=== PATIENT | female | born 1970 | race Caucasian/White ===

== ENCOUNTER 2016-08-08 14:19 | Emergency (ER) | payer BC ==
[2016-08-08 15:04] VITALS: BP 148/70
[2016-08-08] MEDS ORDERED: diPHENhydraMINE PO* 50 MG PO ONE (15:28)
[2016-08-08] MEDS ORDERED: Famotidine TAB* 20 MG PO ONE (15:28)
[2016-08-08] MEDS ORDERED: predniSONE TAB* 20 MG PO ONE (15:29)
--- NOTE | 2016-08-08 15:44 | UC ---
Allergic Reaction HPI - HPI Summary HPI Summary: SINCE YESTERDAY HAS HAD ITCHING AND HIVES ALL OVER BODY. 25 YEARS AGO, DEVELOPED SIMILAR CONDITION, WAS DIAGNOSED WITH CHEMICAL SENSITIVITY. CONCERN THAT SHE WAS RECENTLY EXPOSED TO FRESH PAINT. - History of Current Complaint Chief Complaint: UCGeneralIllness Stated Complaint: ALLERGIC REACTION Time Seen by Provider: 08/08/16 15:16 Hx Obtained From: Patient Onset/Duration: Sudden Onset, Lasting Days, Still Present Severity Initially: Moderate Severity Currently: Moderate Character: Pruritus, Hives Alleviating Factor(s): Antihistamines Associated Signs And Symptoms: Positive: Rash. Negative: Abdominal Pain, Chest Pain, Cough Wheezing, Difficulty Breathing, Hoarseness, Lightheadedness, Syncope , Throat Tightening - Related Hx Possible Reaction To: Environmental Exposure - Allergies/Home Medications Allergies/Adverse Reactions: Allergies Allergy/AdvReac Type Severity Reaction Status Date / Time Azithromycin [From Zithromax] Allergy Rash Verified 08/08/16 14:56 Home Medications: Home Medications Flecainide TAB* [Tambocor TAB*] 75 mg DAILY 08/08/16 [History Confirmed 08/08/16 ] diPHENhydraMINE PO* [Benadryl PO 25 MG TAB*] 2 tab PRN 08/08/16 [History] PMH/Surg Hx/FS Hx/Imm Hx Previously Healthy: Yes Cardiovascular History Of: Reports: Cardiac Disorders - Surgical History Surgical History: Yes Surgery Procedure, Year, and Place: Ablation. D/C - Family History Known Family History: Positive: Other - NO LIVE DISEASE HISTORY Negative: Renal Disease - Social History Occupation: Employed Full-time Lives: With Family Alcohol Use: Occasionally Substance Use Type: None Smoking Status (MU): Current Every Day Smoker Type: Cigarettes Amount Used/How Often: 1/2 ppd Cessation Counseling: Patient Advised to Stop - Immunization History Most Recent Influenza Vaccination: None Most Recent Tetanus Shot: UTD Most Recent Pneumonia Vaccination: n/a Review of Systems Constitutional: Negative Skin: Rash Eyes: Negative ENT: Negative Respiratory: Negative Cardiovascular: Negative Gastrointestinal: Negative Genitourinary: Negative Motor: Negative Neurovascular: Negative Musculoskeletal: Negative Neurological: Negative Psychological: Negative All Other Systems Reviewed And Are Negative: Yes Physical Exam Triage Information Reviewed: Yes Appearance: Well-Appearing, No Pain Distress, Well-Nourished Vital Signs: Initial Vital Signs Temp 99 F 08/08/16 14:58 Pulse 81 08/08/16 14:58 Resp 18 08/08/16 14:58 BP 148/70 08/08/16 14:58 Pulse Ox 98 08/08/16 14:58 Eye Exam: Normal Eyes: Positive: Conjunctiva Clear, Other: - NO JAUNDICE ENT Exam: Normal ENT: Positive: Normal ENT inspection, Hearing grossly normal, Pharynx normal, TMs normal Dental Exam: Normal Neck exam: Normal Neck: Positive: Supple, Nontender, No Lymphadenopathy Respiratory Exam: Normal Respiratory: Positive: Chest non-tender, Lungs clear, Normal breath sounds, No respiratory distress, No accessory muscle use Cardiovascular Exam: Normal Cardiovascular: Positive: RRR, No Murmur, Pulses Normal Abdominal Exam: Normal Abdomen Description: Positive: Nontender, No Organomegaly Musculoskeletal Exam: Normal Neurological Exam: Normal Psychological Exam: Normal Skin: Positive: rashes - GENERALIZED URTICARIA Allergic Reaction Course/Dx - Differential Dx/Diagnosis Differential Diagnosis/HQI/PQRI: Local Allergic Reaction Provider Diagnoses: URTICARIA Discharge - Discharge Plan Condition: Stable Disposition: HOME Prescriptions: Famotidine TAB* [Pepcid 20 MG TAB*] 40 mg PO BID #20 tab diPHENhydraMINE PO* [Benadryl PO 50 MG CAP*] 50 mg PO BID #15 cap predniSONE TAB* [Deltasone TAB*] 10 mg PO DAILY #28 tab Patient Education Materials: General Allergic Reaction (ED) Forms: *Work Release Referrals: Hermila Jordan [Primary Care Provider] -
== END 2016-08-08 15:40 | disposition home or self-care (01) ==
LOC: UCCORT 14:19
DX: L50.9 Urticaria, unspecified (principal); Z88.1 Allergy status to other antibiotic agents; F17.210 Nicotine dependence, cigarettes, uncomplicated
CPT/HCPCS: 99202; A9270-GY; G0463; J7512

== ENCOUNTER 2017-11-11 16:33 | Emergency (ER) | payer BC ==
[2017-11-11 16:53] VITALS: BP 120/77
--- NOTE | 2017-11-11 17:16 | UC ---
UC General HPI - HPI Summary HPI Summary: friday, throat irritated and itchy. today, lost voice as well. no fever, trouble with swallowing or sob. no sick contacts or hx of straining voice. - History of Current Complaint Chief Complaint: UCRespiratory Stated Complaint: NO VOICE Time Seen by Provider: 11/11/17 16:59 Hx Obtained From: Patient Onset/Duration: Gradual Onset Timing: Constant Pain Intensity: 3 Aggravating: talking Alleviating: resting voice Associated Signs & Symptoms: Positive: Cough. Negative: Fever, SOB, Wheezing - Allergy/Home Medications Allergies/Adverse Reactions: Allergies Allergy/AdvReac Type Severity Reaction Status Date / Time valacyclovir [From Valtrex] Allergy Severe Itching Verified 11/11/17 16:43 azithromycin Allergy Rash Verified 11/11/17 16:43 Home Medications: Home Medications Loratadine 1 tab DAILY 11/11/17 [History Confirmed 11/11/17] PMH/Surg Hx/FS Hx/Imm Hx - Additional Past Medical History Additional PMH: PSVT - Surgical History Surgical History: Yes Surgery Procedure, Year, and Place: Ablation. D/C. - Family History Known Family History: Positive: Other - NO LIVE DISEASE HISTORY Negative: Renal Disease - Social History Occupation: Employed Full-time Alcohol Use: Occasionally Substance Use Type: None Smoking Status (MU): Current Every Day Smoker Type: Cigarettes Amount Used/How Often: 1/2 ppd - Immunization History Most Recent Influenza Vaccination: None Most Recent Tetanus Shot: UTD Most Recent Pneumonia Vaccination: n/a Vaccination Up to Date: Yes Review of Systems Constitutional: Negative Skin: Negative Eyes: Negative ENT: Sore Throat Respiratory: Cough Cardiovascular: Negative Gastrointestinal: Negative Genitourinary: Negative Motor: Negative Neurovascular: Negative Musculoskeletal: Negative Neurological: Negative Psychological: Negative Is Patient Immunocompromised?: No All Other Systems Reviewed And Are Negative: Yes Physical Exam Triage Information Reviewed: Yes Appearance: Well-Appearing Vital Signs: Initial Vital Signs Temp 98.1 F 11/11/17 16:45 Pulse 78 11/11/17 16:45 Resp 16 11/11/17 16:45 BP 120/77 11/11/17 16:45 Pulse Ox 100 11/11/17 16:45 Vital Signs Reviewed: Yes Eyes: Positive: Conjunctiva Clear ENT: Positive: Pharyngeal erythema, TMs normal, Hoarse voice, Uvula midline, Other - No stridor. Negative: Nasal congestion, Nasal drainage, Tonsillar swelling, Tonsillar exudate, Trismus, Muffled voice Neck: Positive: Supple, Nontender, No Lymphadenopathy. Negative: Nuchal Rigidity Respiratory: Positive: Lungs clear, Normal breath sounds, No respiratory distress, Other: - NPC Cardiovascular: Positive: RRR, No Murmur Abdomen Description: Positive: Nontender, No Organomegaly, Soft Bowel Sounds: Positive: Present Musculoskeletal: Positive: ROM Intact, No Edema Neurological: Positive: Alert Psychological: Positive: Age Appropriate Behavior Skin Exam: Normal Diagnostics - Laboratory Diagnostic Studies Completed/Ordered: rapid strep=neg Course/Dx - Course Course Of Treatment: non toxic. rapid strep neg. nothing to suggest abcterial infection. - Differential Dx - Multi-Symptom Provider Diagnoses: Laryngitis Discharge - Sign-Out/Discharge Documenting (check all that apply): Patient Departure - Discharge Plan Condition: Stable Disposition: HOME Patient Education Materials: Laryngitis (ED) Referrals: Zeny Feliciano PA [Primary Care Provider] - 5 Days - Billing Disposition and Condition Condition: STABLE Disposition: Home
[2017-11-11] MEDS ORDERED: Dexamethasone IV* 4 MG/ML 1 ML (4 MG) ONE (17:30)
== END 2017-11-11 17:43 | disposition home or self-care (01) ==
LOC: UCCORT 16:33
DX: J04.0 Acute laryngitis (principal); Z88.1 Allergy status to other antibiotic agents; Z88.3 Allergy status to other anti-infective agents; F17.210 Nicotine dependence, cigarettes, uncomplicated
CPT/HCPCS: 87651; 99212; G0463; J1100